=== PATIENT | male | born 1965 | race Caucasian/White ===

== ENCOUNTER 2018-01-26 08:00 | Outpatient (RCR) | payer OTHER, SELFPAY ==
--- NOTE | 2017-12-23 08:46 | HMH.PTOPEV ---
PT Outpatient Evaluation Rehab PT Outpatient Evaluation Start: 12/23/17 08:10 Freq: Status: Active Protocol: Document 12/23/17 08:38 XIN (Rec: 12/23/17 08:46 PHORADA [id number]) Electronically Signed By Monico Barrett, PT 12/23/17 08:38 Outpatient Therapy Subjective History Subjective History Pt is 52 yowm who presents with c/o pain in the right medial right knee x ~ 6 wks after a fall, I slipped on some wet grass and got my knee caught under me. He reports pain is much better since initial injury, but he continues to have increased pain at night and with any twisting or turning. He reports knee brace helps decrease his feelings of instability during the day. He also reports hx of restless leg syndrome. Chief Complaint Pain Symptom Type Ache Symptoms Relieved By Rest/Positioning Brace/Support OTC Meds Symptoms Aggravated By Twisting Walking Prior Functional Limitations None Current Functional Limitations Walking Symptom Description Constant but Variable Level of pain today (0-10) 4 Pain scale - at its worst (0-10) 10 Hip/Knee Eval Gait Observation General Gait Pattern Observation Antalgic Gait Palpation Tenderness right Knee Palpation Finding Tenderness Knee Palpation Overall Comment medial jt line. MMT bilateral Hip Flexion Strength Grade 5 Normal Hip Abduction Strength Grade 5 Normal Hip Adduction Strength Grade 5 Normal Hip Extension Strength Grade 5 Normal Knee Extension Strength Grade 5 Normal Knee Flexion Strength Grade 5 Normal ROM right Knee Flexion Active Range of Motion ( 0-124 degrees) Special Tests Knee Anterior Drawer Test Negative Left Negative Right Knee Anterior Moo Test Negative Left Negative Right Knee Posterior Sag (Petal Drawer) Test Negative Left Negative Right Knee Valgus Stress Test Negative Left Negative Right Knee Varus Stress Test Negative Left Negative Right Knee Divya Test Negative Left Negative Right
== END 2018-01-26 08:05 | disposition home or self-care (01) ==
LOC: PT 08:00
PROVIDERS: Visit Provider Family Medicine
DX: S83.411A Sprain of medial collateral ligament of right knee, initial encounter (principal); M25.561 Pain in right knee
CPT/HCPCS: 97010; 97014; 97033; 97035; 97110; 97163; G0283

== ENCOUNTER → 2018-06-14 11:04 | Outpatient (CLI) | payer OTHER, SELFPAY ==
[2018-06-14 11:48] LABS: Basophils # 0.1 K/mm3 (0-0.2); Basophils % 0.8 % (0.1-2.0); Eosinophils # 0.3 K/mm3 (0.0-0.4); Eosinophils % 4.2 % (0.1-12.0); Hematocrit 41.4 % (42.0-52.0); Hemoglobin 14.1 g/dL (14.1-18.0); Lymphocytes # 1.8 K/mm3 (0.7-4.5); Lymphocytes % 26.2 % (10-50); Mean Corpuscular HGB Conc 34.1 g/dL (31.8-35.4); Mean Corpuscular Hemoglobin 29.6 pg (27.0-31.2); Mean Corpuscular Volume 86.8 fl (80-94); Mean Platelet Volume 8.1 fl (7.4-10.4); Monocytes # 0.4 K/mm3 (0.1-1.0); Monocytes % 6.1 % (1.7-9.3); Neutrophils # 4.4 K/mm3 (1.8-7.8); Neutrophils % 62.8 % (37.0-80.0); Platelet Count 202 K/mm3 (142-424); Red Blood Count 4.77 M/mm3 (4.60-6.20); Red Cell Distribution Width 13.3 % (11.5-17.5)
[2018-06-14 13:17] LABS: Alanine Aminotransferase 58 U/L (12-78); Albumin Level 3.7 gm/dL (3.4-5.0); Alkaline Phosphatase 74 U/L (46-116); Anion Gap 17.1 mEq/L (5-15); Aspartate Amino Transferase 29 U/L (15-37); Bilirubin,Total 0.3 mg/dL (0.2-1.0); Blood Urea Nitrogen 12 mg/dL (7-18); Calcium 8.6 mg/dL (8.5-10.1); Carbon Dioxide 22 mmol/L (21.0-32.0); Chloride 106 mmol/L (98-107); Creatinine,Serum 0.85 mg/dL (0.70-1.30); Estimated Glomerular Filt Rate 94 ml/min (>60); Ferritin 106 ng/mL (8-388); GFR (African American) 114 ML/MIN (>60); Globulin 3.6 gm/dl (1.3-3.2); Glucose 114 mg/dL (74-106); Potassium 4.1 mmoL/L (3.5-5.1); Sodium 141 mmol/L (136-145); Thyroid Stimulating Hormone 1.87 uIU/ml (0.358-3.740); Total Protein,Serum 7.3 gm/dL (6.4-8.2)
[2018-06-15 08:17] LABS: Iron 68 ug/dL (38-169); Iron Saturation 22 % (15-55); UIBC 248 ug/dL (111-343)
[2018-06-15 08:19] LABS: Vitamin B12 509 pg/mL (232-1245)
== END ==
PROVIDERS: Visit Provider Specialist
DX: D50.9 Iron deficiency anemia, unspecified (principal); G25.81 Restless legs syndrome; G47.33 Obstructive sleep apnea (adult) (pediatric); M79.604 Pain in right leg; M79.605 Pain in left leg; R20.2 Paresthesia of skin; Z68.41 Body mass index [BMI] 40.0-44.9, adult
CPT/HCPCS: 36415; 80053; 82607; 82728; 82746; 83540; 83550; 84443; 85025

== ENCOUNTER → 2018-07-10 07:57 | Outpatient (POV) | payer OTHER, SELFPAY | PROVIDERS: Visit Provider Specialist | DX: M79.604 Pain in right leg (principal); M79.605 Pain in left leg; R20.2 Paresthesia of skin; G25.81 Restless legs syndrome; Z68.41 Body mass index [BMI] 40.0-44.9, adult; G47.33 Obstructive sleep apnea (adult) (pediatric) | CPT/HCPCS: 95886; 95908 ==

== ENCOUNTER → 2019-03-12 13:30 | Outpatient (CLI) | payer OTHER, SELFPAY ==
[2019-03-12 14:05] LABS: Alanine Aminotransferase 49 U/L (12-78); Albumin Level 3.6 gm/dL (3.4-5.0); Albumin/Globulin Ratio 1.1 (1.1-1.8); Alkaline Phosphatase 67 U/L (46-116); Anion Gap 13.9 mEq/L (5-15); Aspartate Amino Transferase 26 U/L (15-37); Bilirubin,Total 0.4 mg/dL (0.2-1.0); Blood Urea Nitrogen 12 mg/dL (7-18); Calcium 8.6 mg/dL (8.5-10.1); Carbon Dioxide 28 mmol/L (21.0-32.0); Chloride 100 mmol/L (98-107); Cholesterol 135 mg/dL (140-200); Creatinine,Serum 0.86 mg/dL (0.70-1.30); Estimated Glomerular Filt Rate 93 ml/min (>60); GFR (African American) 112 ML/MIN (>60); Globulin 3.3 gm/dl (1.3-3.2); Glucose 95 mg/dL (74-106); HDL Cholesterol 27 mg/dL (27-67); LDL Cholesterol 92 mg/dL (0-130); Potassium 3.9 mmoL/L (3.5-5.1); Sodium 138 mmol/L (136-145); Total Protein,Serum 6.9 gm/dL (6.4-8.2); Triglycerides 78 mg/dL (30-200); VLDL Cholesterol 16 mg/dL (0-40)
[2019-03-12 14:19] LABS: Basophils % 0.5 % (0.1-2.0); Eosinophils # 0.2 K/mm3 (0.0-0.4); Eosinophils % 3.6 % (0.1-12.0); Hematocrit 44.3 % (42.0-52.0); Hemoglobin 14.5 g/dL (14.1-18.0); Mean Corpuscular HGB Conc 32.7 g/dL (31.8-35.4); Mean Corpuscular Hemoglobin 28.9 pg (27.0-31.2); Mean Corpuscular Volume 88.4 fl (80-94); Mean Platelet Volume 9.4 fl (7.4-10.4); Monocytes # 0.5 K/mm3 (0.1-1.0); Monocytes % 9.9 % (1.7-9.3); Neutrophils # 3.1 K/mm3 (1.8-7.8); Neutrophils % 64.9 % (37.0-80.0); Platelet Count 191 K/mm3 (142-424); Red Blood Count 5.02 M/mm3 (4.60-6.20); Red Cell Distribution Width 14.6 % (11.5-17.5); White Blood Count 4.8 K/mm3 (4.8-10.8)
== END ==
PROVIDERS: Visit Provider Emergency Medicine
DX: R53.83 Other fatigue (principal)
CPT/HCPCS: 80053; 80061; 84443; 85025

== ENCOUNTER → 2019-03-26 08:05 | Outpatient (CLI) | payer OTHER, SELFPAY ==
--- NOTE | 2019-03-26 08:05 | US_ITS ---
PROCEDURE: US GALLBLADDER CLINICAL INDICATION: abdominal pain Nausea and vomiting COMPARISON: RUQ US RUQ-(ABD LTD)1ORGAN/QUAD/FU from 03/25/2014 FINDINGS: Pancreas: Not well delineated. There is some heterogeneous echogenicity of the body of the pancreas. The MRI or CT of the pancreas may be of further value. Liver: Unremarkable. There is appropriate direction of blood flow within a non dilated portal vein. Right kidney: Unremarkable appearing. No hydronephrosis. Gallbladder: Gallbladder wall is slightly thickened at 4-5 mm. No pericholecystic fluid. There are 2 hyperechoic foci along the gallbladder wall 1 anteriorly and 1 posteriorly. These could represent polyps. The posterior in focus could also be due to a nonshadowing adherent stone. No shadowing mobile stones are evident. The IMPRESSION: 1. Mild heterogeneous echogenicity of the body of the pancreas nonspecific and may be better evaluated with MRI or CT. 2. Mild gallbladder wall thickening with small polyps versus a small adherent nonshadowing stone posteriorly Dictated by: Anthony Tan MD 03/26/2019 09:58 Electronically signed by Anthony Tan MD in [facility] 03/26/2019 09:58
== END ==
PROVIDERS: PCP Emergency Medicine; Visit Provider Emergency Medicine
DX: K82.9 Disease of gallbladder, unspecified (principal)
CPT/HCPCS: 76705

== ENCOUNTER → 2019-04-16 08:50 | Outpatient (CLI) | payer OTHER, SELFPAY ==
--- NOTE | 2019-04-16 08:51 | MR_ITS ---
PROCEDURE: MR ABDOMEN WO/W CON CLINICAL INDICATION: abd pain COMPARISON: Ultrasound exam 03/25/2019 TECHNIQUE: Routine multiplanar multisequence exam was performed with and without contrast. 27 milliliters of ProHance contrast was given. FINDINGS: There is mild fatty infiltration of the liver. There are cortical cysts of both kidneys largest cyst is approximately 1.6 centimeters in the left kidney. There is a 1.6 x 2.3 centimeter focus of soft tissue density hypointense to the liver on T1 sequences and hyperintense on T2 in the peripancreatic region favored to be a peripancreatic nonspecific lymph node. This may be separable from the pancreas and liver. Thin-section pancreatic protocol CT may be useful for further assessment. Unfortunately there is some motion artifact degradation of images limiting assessment on this exam. There is no free fluid or lymphadenopathy. No biliary ductal dilatation is apparent. A rounded 1 centimeter soft tissue nodule abutting the pleural surface is seen in the left lower lobe. At a minimum correlation with the current chest x-ray is recommended. IMPRESSION: Possible 1.6 x 2.3 centimeter pancreatic origin mass or peripancreatic lymphadenopathy. Thin-section pancreatic protocol CT imaging is recommended for further clarification. No acute intra-abdominal pathology. Possible 1 centimeter left lower lobe pulmonary nodule requiring follow-up. Dictated by: Mitchell Martin 04/16/2019 12:43 Electronically signed by Mitchell Martin in [facility] 04/16/2019 12:43
== END ==
PROVIDERS: PCP Emergency Medicine; Visit Provider Emergency Medicine
DX: R10.9 Unspecified abdominal pain (principal)
CPT/HCPCS: 74183; A9576

== ENCOUNTER → 2019-04-26 14:44 | Outpatient (CLI) | payer OTHER, SELFPAY ==
[2019-04-26 16:50] LABS: Chloride 102 mmol/L (98-107); Potassium 4.5 mmoL/L (3.5-5.1); Sodium 139 mmol/L (136-145)
[2019-04-26 16:53] LABS: Anion Gap 12.5 mEq/L (5-15); Blood Urea Nitrogen 12 mg/dl (9-20); Carbon Dioxide 29 mmol/L (22.0-30.0); Estimated Glomerular Filt Rate 101 ml/min (>60); GFR (African American) 122 ML/MIN (>60)
[2019-04-26 16:54] LABS: Calcium 9.6 mg/dl (8.4-10.2); Glucose 59 mg/dl (74-100)
== END ==
PROVIDERS: Visit Provider Physician Assistant
DX: R10.9 Unspecified abdominal pain (principal)
CPT/HCPCS: 36415; 80048

== ENCOUNTER → 2019-04-27 11:00 | Outpatient (CLI) | payer OTHER, SELFPAY ==
--- NOTE | 2019-04-27 11:01 | CT_ITS ---
PROCEDURE: CT CHEST WO CON CLINICAL INDICATION: LLL nodule Follow-up left lower lobe nodule COMPARISON: MR ABDOMEN WO/W CON from 04/16/2019 CT ABDOMEN WO/W CON from 04/27/2019 TECHNIQUE: Axial images obtained with sagittal and coronal reformats. All CT scans at the facility use one or more dose reduction, viz: automated exposure control, ma/kV adjustment per patient size (including targeted exams where dose is matched to indication, i.e. head), or iterative reconstruction technique. FINDINGS: HEART AND MEDIASTINAL STRUCTURES: Unremarkable. LUNGS AND PLEURAL SPACES: There are atelectatic or fibrotic changes within the lingula. There is a well-circumscribed 1 cm nodule in the left lower lobe with some central calcification consistent a granuloma. BONY STRUCTURES: No acute bony abnormalities apparent. UPPER ABDOMEN: Degenerative changes thoracic ADDITIONAL FINDINGS: No other significant abnormalities. IMPRESSION: 1. Left lower lobe nodule as seen on previous MRI corresponds to well-circumscribed partially calcified nodule consistent with a granuloma 2. Atelectatic or fibrotic changes are present in the lingula Dictated by: Anthony Tan MD 04/27/2019 16:20 Electronically signed by Anthony Tan MD in [facility] 04/27/2019 16:20
--- NOTE | 2019-04-27 11:01 | CT_ITS ---
PROCEDURE: CT ABDOMEN WO/W CON CLINICAL HISTORY: abn MRI Follow-up pancreatic mass COMPARISON: MR ABDOMEN WO/W CON from 04/16/2019 TECHNIQUE: Axial pre and post enhanced images are obtained. 30 second, 60 second, and 5 minutes delayed images are obtained following the intravenous administration of 75 mL Optiray 350 Axial images obtained with sagittal and coronal reformats. All CT scans at the facility use one or more dose reduction, viz: automated exposure control, ma/kV adjustment per patient size (including targeted exams where dose is matched to indication, i.e. head), or iterative reconstruction technique. FINDINGS: Partially calcified granulomas present in the left lung base posteriorly. There are atelectatic or fibrotic changes in the lingula. Liver, gallbladder, spleen, adrenal glands, and pancreas have an unremarkable appearance. There is a small isodense nodule to the right of the head of the pancreas which measures 1.7 cm corresponding to the MRI abnormality and is felt represent a small peripancreatic lymph node with a preserved fat plane between the nodule in the pancreatic head the. No pancreatic mass apparent. There are few other small periportal lymph nodes. The kidneys have an unremarkable appearance. There are few small retroperitoneal lymph nodes present as well. There is diverticulosis of the colon IMPRESSION: 1. No obvious pancreatic mass. There is a small periportal/peripancreatic lymph node just lateral to the junction of the head and body of the pancreas. 2. Small periportal and retroperitoneal lymph nodes are present. Dictated by: Anthony Tan MD 04/27/2019 16:30 Electronically signed by Anthony Tan MD in [facility] 04/27/2019 16:30
== END ==
PROVIDERS: PCP Emergency Medicine; Visit Provider Physician Assistant
DX: R91.1 Solitary pulmonary nodule (principal); K86.89 Other specified diseases of pancreas
CPT/HCPCS: 71250; 74170; Q9967

== ENCOUNTER → 2019-05-01 09:53 | Outpatient (CLI) | payer OTHER, SELFPAY | PROVIDERS: Visit Provider Urology | DX: Z12.5 Encounter for screening for malignant neoplasm of prostate (principal) | CPT/HCPCS: 36415; G0103 ==

== ENCOUNTER → 2019-05-10 09:49 | Outpatient (CLI) | payer OTHER, SELFPAY ==
--- NOTE | 2019-05-10 09:50 | NM_ITS ---
PROCEDURE: NM HEPATOBILIARY W PHARM CLINICAL INDICATION: RUQ pain The gallbladder wall thickening with small polyps versus small stones COMPARISON: US GALLBLADDER from 03/26/2019 TECHNIQUE: Dose: 8.24 mCi technetium Choletec and 2.6 mcg of CCK. Pain was reported during CCK infusion. FINDINGS: Gallbladder is visualized 15 minutes and small bowel is visualized 10 minutes. Gallbladder ejection fraction is calculated be 44 percent. There was pain reported with CCK infusion IMPRESSION: No evidence of common or cystic duct obstruction. Normal gallbladder ejection fraction. Dictated by: Anthony Tan MD 05/10/2019 13:38 Electronically signed by Anthony Tan MD in [facility] 05/10/2019 13:38
== END ==
PROVIDERS: PCP Emergency Medicine; Visit Provider Emergency Medicine
DX: R10.9 Unspecified abdominal pain (principal); G89.29 Other chronic pain
CPT/HCPCS: 78227; A9537; J2805

== ENCOUNTER → 2019-05-21 08:38 | Outpatient (CLI) | payer OTHER, SELFPAY ==
--- NOTE | 2019-05-21 08:39 | FL_ITS ---
PROCEDURE: FL UPPER GI SMALL BOWEL CLINICAL INDICATION: abdominal pain Chronic right lower quadrant pain COMPARISON: No exams were available for comparison TECHNIQUE: FLUOROSCOPY TIME : 2 minutes and 51 seconds FINDINGS: The esophagus, stomach, and duodenum have an unremarkable appearance.There is no evidence of hiatal hernia. No ulcer or mass evident. No mucosal abnormalities apparent. There is normal peristalsis. The duodenal C-loop is nondisplaced. Small bowel has an unremarkable appearance. No obstructing lesions, masses, or mucosal abnormalities are evident. IMPRESSION: Unremarkable upper GI and small-bowel follow-through Dictated by: Anthony Tan MD 05/21/2019 16:59 Electronically signed by Anthony Tan MD in [facility] 05/21/2019 16:59
== END ==
PROVIDERS: PCP Emergency Medicine; Visit Provider Surgery
DX: R13.10 Dysphagia, unspecified (principal)
CPT/HCPCS: 74246; 74248

== ENCOUNTER → 2019-08-17 10:21 | Outpatient (CLI) | payer BC, SELFPAY ==
--- NOTE | 2019-08-17 10:31 | XR_ITS ---
PROCEDURE: XR HIP LT 2-3V W/PELVIS CLINICAL INDICATION: LT HIP PAIN COMPARISON: CT ABDOMEN PELVIS WO CON from 05/07/2019 FINDINGS: No fracture or dislocation is evident. No significant degenerative change. No lytic or blastic change. There is mild spurring of the inferior SI joints bilaterally. Unremarkable soft tissues. IMPRESSION: No acute findings, suspect mild bilateral sacroiliitis Dictated by: Dr. Nick Abreu MD 08/17/2019 12:[address] Nick Abreu MD in [facility] 08/17/2019 12:13
== END ==
PROVIDERS: PCP Family Medicine; Visit Provider Family Medicine
DX: M25.552 Pain in left hip (principal)
CPT/HCPCS: 73502

== ENCOUNTER 2019-09-19 09:49 | Outpatient (RCR) | payer BC, SELFPAY ==
--- NOTE | 2019-09-19 11:24 | HMH.PTOPEV ---
PT Outpatient Evaluation Rehab PT Outpatient Evaluation Start: 09/19/19 10:03 Freq: Status: Active Protocol: Document 09/19/19 10:14 OLEGARIO (Rec: 09/19/19 11:24 OLEGARIO [id number]) Electronically Signed By Parrish Cunningham PT 09/19/19 10:14 Outpatient Therapy Subjective History Subjective History This is the initial Physical Therapy evaluation for Corbin Baxter. Pt is a 53 y/o male referred to PT for c/o L hip and LLE pain. Pt reports pain began insidiously in Nov 2018. 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 Pt reports this [employer] company had multiple facilities that all had multiple stories and stairs to climb. Pt reports he began noticing pain in L hip and buttocks which continued to increase the more and more he worked. Pt reports he had recent steroid injection into hip which decreased pain, but has begun to wear off with return to work. Pt also reports he has some pain into anterior L thigh and B claves tend to cramp up frequently. Chief Complaint Pain Symptom Type Ache,Throb,Sharp Symptoms Relieved By Rest/Positioning,Ice Symptoms Aggravated By Physical Activity,Walking Prior Functional Limitations None Current Functional Limitations Squatting,Recreation Activity, Walking,Stairs Symptom Description Intermittent Level of pain today (0-10) 2 Pain scale - at its best (0-10) 0 Pain scale - at its worst (0-10) 8 Hip/Knee Eval Gait Observation General Gait Pattern Observation Antalgic Gait,Decrease Weight Bear (L),Decrease Stride Lngth (R) Assistive Device Assistive Devices None / NA Palpation Tenderness left Hip Palpation Findings Tenderness MMT Hip Flexion Strength Grade 4 Good Hip Abduction Strength Grade 4 Good Hip External Rotation Strength Grade 4 Good Knee Extension Strength Grade 5 Normal Knee Flexion Strength Grade 5 Normal Special Tests Hip Raghu Test Positive Left Sciatic Nerve Tension Test Negative Left Hip Scouring (Quadrant) Test
== END 2019-09-19 09:55 | disposition home or self-care (01) ==
LOC: PT 09:49
PROVIDERS: PCP Family Medicine; Visit Provider Family Medicine
DX: M70.62 Trochanteric bursitis, left hip (principal); M16.12 Unilateral primary osteoarthritis, left hip
CPT/HCPCS: 97163

== ENCOUNTER → 2020-03-13 14:33 | Outpatient (CLI) | payer OTHER, SELFPAY ==
--- NOTE | 2020-03-13 14:42 | XR_ITS ---
PROCEDURE: XR FOOT RT MIN 3V CLINICAL INDICATION: CELLULITIS RT GREAT TOE COMPARISON: No exams were available for comparison FINDINGS: There are moderate osteoarthritic changes at the 1st metatarsophalangeal joint. There is an enthesophyte at the Achilles insertion and there is calcification within the mid and distal aspect of the Achilles tendon proximal to the enthesophyte. There are mild osteoarthritic changes of the talonavicular joint and at the ankle joint anteriorly. IMPRESSION: Degenerative changes as described above Dictated by: Anthony Tan MD 03/13/2020 15:38 Anthony Tan MD in [facility] 03/13/2020 15:38
== END ==
LOC: RAD 14:39 → COVID.OUT 15:13
PROVIDERS: PCP Family Medicine; Visit Provider Nurse Practitioner Family
DX: Z11.52 Encounter for screening for COVID-19 (principal); R50.9 Fever, unspecified; L03.031 Cellulitis of right toe
CPT/HCPCS: 73630; U0003; U0004

== ENCOUNTER 2020-03-19 16:00 | Outpatient (RCR) | payer BC, OTHER, MEDICAID, SELFPAY ==
--- NOTE | 2020-01-21 15:57 | HMH.PTOPEV ---
PT Outpatient Evaluation Rehab PT Outpatient Evaluation Start: 01/21/20 15:41 Freq: Status: Active Protocol: Document 01/21/20 15:41 DARIEL (Rec: 01/21/20 15:57 DARIEL [id number]) Electronically Signed By Ernie Calderon, PT 01/21/20 15:41 Outpatient Therapy Subjective History Subjective History Patient is a 54 year old male presenting to outpatient PT with reports of chronic LBP, L hip and LLE radicular symptoms that have progressively gotten worse over the past 6 months. Radicular symptoms relieved with lumbar extension indicating bulging disc. No recent imaging to report. Comorbidities include hx of RLS, appendectomy and R knee arthroscopy. Chief Complaint Pain,Stiff,Paresthesia Symptom Type Ache,Burning Symptoms Relieved By Rest/Positioning,Heat,Ice,OTC Meds Symptoms Aggravated By Standing,Bending/Stooping, Physical Activity,Walking, Lifting Prior Functional Limitations None Current Functional Limitations Lifting,Housework,Driving, Standing,Sitting,Squatting, Recreation Activity,Walking, Stairs,Bending/Stooping Symptom Description Constant but Variable Level of pain today (0-10) 6 Pain scale - at its best (0-10) 3 Pain scale - at its worst (0-10) 9 Lumbopelvic Eval Posture Thoracic Spine Posture Standing Position Increased Kyphosis Lumbar Spine Posture Standing Position Neutral Assistive device Assistive Devices None / NA Palapation tenderness left buttock tenderness Yes: 3/4 Accessory Movement L5 left S1 left Range of Motion Lumbar Spine Active Flexion Range of 64 Motion (degrees) Lumbar Spine Active Extension Range of 18 Motion (degrees) Left Lumbar Spine Lateral Flexion Active 18 Range of Motion (degrees) Right Lumbar Spine Lateral Flexion 22 Active Range of Motion (degrees) Lumbar Spine ROM Limitations Soft Tissue Tightness Manual Muscle Test Bilateral Knee Extension Strength Grade 5 Normal Knee Flexion Strength Grade 5 Normal Hip Flexion Strength Grade 5 Normal Ankle Dorsiflexion Strength Grade 5 Normal Gastronemius/Soleus Strength Grade 5 Normal DTR Rt Patellar
== END 2020-03-19 16:05 | disposition home or self-care (01) ==
LOC: PT 16:00
PROVIDERS: PCP Family Medicine; Visit Provider Family Medicine
DX: M70.62 Trochanteric bursitis, left hip (principal); M54.32 Sciatica, left side
CPT/HCPCS: 97010; 97012; 97014; 97110; 97140; 97163; 97164; G0283

== ENCOUNTER → 2020-04-07 08:58 | Outpatient (POV) | payer OTHER, SELFPAY ==
[2020-04-07 09:02] VITALS: BP 138/76; PULSE 87; RESP 18; TEMP 36.8; O2SAT 99; BMI 41.9
--- NOTE | 2020-04-07 09:39 | HMH.PMCON ---
Assessment and Plan (1) Back pain Status: Chronic Category: Medical Code(s): M54.9 - Dorsalgia, unspecified (2) Lumbar radiculopathy Status: Chronic Category: Medical Code(s): M54.16 - Radiculopathy, lumbar region - Assessment and plan all Dx Assessment and Plan for all problems:: We will schedule the patient for lumbar MRI. Patient has failed over 6 months of conservative therapy including careers adviser, physical therapy, anti-inflammatories. Patient is continuing physical therapy at this time. Patient does not have any updated lumbar imaging. We will send him for an MRI. We will have him return to see if he is a candidate for any interventional treatment. I will follow-up with him after this reassess his symptoms at that time he has been instructed to call the office if he has any issues prior to his next appointment. Dr. Amaral has reviewed this note and agrees with this plan of care. This note was dictated using voice recognition software and may contain errors or omissions HPI - Data of Consult Consult date: 04/07/20 Requesting Physician: Aretha Lilly APRN Primary Care Provider: Cuong Peña MD - Consult Narrative Reason for consult: Back pain History of present illness: Mr. Palencia is a 54 year old male who presents today for consultation regards to his low back and left leg pain. Patient has had this pain for quite some time. He is tried and failed physical therapy twice. He is currently in physical therapy again. Patient's had steroid injections in his bursa with no relief. He is tried careers adviser with no relief. He is currently on meloxicam and baclofen which takes a little bit of the edge off however it is not taking away his radicular symptomology in his left leg. Patient has left leg radiculopathy affecting his feet as well. Patient currently rates his pain a 5 out of 10. Patient states that lifting, bending, driving and stairs increases pain while rest and heat decreases pain. CC: Aretha Lilly APRN [facility] History I have reviewed the patient's past medical history: Yes Medical History: Denies:: Cancer, Diabetes Mellitus Type 1, Diabetes Mellitus Type 2, Internal Pacemaker, MRSA *Have you ever received a pneumonia vaccine?: Yes *Have you received a flu vaccine this season?: Yes Other Medical History: Reports: Arthritis, Other Laterality Cases: Right: Arthroscopy Knee, Bilateral: Tonsillectomy Other Surgeries: Yes: Appendectomy, Colonoscopy, Other. No: Pacemaker Amputation: No Fractures: No - *Social History Last grade of school completed: Some college Smoking Status: Never smoker Tobacco Type: cigarettes #Yrs smoked (if former smoker): 20 Alcohol Intake: never Alcohol Intake Frequency:: other Substance Use Type: former substance user, marijuana, crack/cocaine, methamphetamine *Occupational Status:: employed Housing: house Household Members: spouse, children *Travel in the last 8 weeks: None Family Hx:: Unable to obtain Review of Systems - Review of Systems ROS General: no recent weight change, no fever, no sleep disturbances Respiratory: no cough, no shortness of air, no recurring pulmonary infections Cardiovascular/Peripheral Vascular: No chest pain, No palpitations, no edema, no shortness of breath. Gastrointestinal: no new onset incontinence, normal bowel movements reported Genitourinary: no new onset incontinence Musculoskeletal: Back pain, left leg pain Psychiatric: normal mood/ affect Neurological: [denies new onset weakness in extremities], [denies new onset balance issues] Meds Home Medications Medication Instructions Recorded Confirmed Type tamsulosin 0.4 mg capsule PO 90 Days cap 05/29/18 11/27/19 History oxybutynin chloride 5 mg 5 mg PO tab 06/04/19 11/27/19 History tablet,extended release 24 hr gabapentin enacarbil 600 mg 600 mg PO QPM 30 Days #30 tab 11/27/19 11/27/19 Rx tablet,extended release ropinirole 1 m
== END ==
PROVIDERS: PCP Family Medicine; Visit Provider Clinical Nurse Specialist Family Health
DX: M54.9 Dorsalgia, unspecified (principal); M54.16 Radiculopathy, lumbar region
CPT/HCPCS: 99202; G0463

== ENCOUNTER → 2020-04-08 14:01 | Outpatient (CLI) | payer OTHER, SELFPAY ==
--- NOTE | 2020-04-08 14:06 | MR_ITS ---
PROCEDURE: MR LUMBAR SPINE WO CON CLINICAL INDICATION: LBP WITH LEFT LEG PAIN LBP DOWN LT LEG. NO TRAUMA. NUMBNESS, PAIN AND TINGLING DOWN LT LEG. NO SURGERY. NO PRIOR. COMPARISON: No exams were available for comparison TECHNIQUE: Standard multiplanar multiecho sequences are performed without contrast. 3-D MIP and myelographic images are also rendered and reviewed FINDINGS: There is normal alignment. The spinal cord ends at the L1 level. L1-L2: Unremarkable. L2-L3: Mild facet ligamentum hypertrophy with mild right foraminal narrowing. L3-L4: Mild facet and ligamentum hypertrophy with mild bilateral foraminal narrowing L4-5: Minimal bulging disc with facet and ligamentum hypertrophy with mild bilateral foraminal narrowing. L5-S1: Degenerative disc disease with bulging disc which is eccentric toward the left with a broad-based left lateral disc osteophyte complex causing severe left-sided foraminal narrowing laterally with impingement upon the exiting L5 nerve root. There is mild retrolisthesis of L5 of 2 mm with and annular fissure involving the posterior disc No extruded herniated disc or canal stenosis. IMPRESSION: 1. Mild multilevel lumbar spondylosis with facet and ligamentum hypertrophy. Please see above for detailed description at each level 2. Degenerative disc disease at L5-S1 with bulging disc which is eccentric toward the left with a broad-based left lateral disc osteophyte complex causing severe left-sided foraminal narrowing laterally with impingement upon the exiting L5 nerve root. There is mild retrolisthesis of L5 of 2 mm with and annular fissure involving the posterior disc 3. No extruded herniated disc or canal stenosis. Dictated by: Anthony Tan MD 04/10/2020 13:11 Anthony Tan MD in [place] 04/10/2020 13:11
== END ==
PROVIDERS: PCP Family Medicine; Visit Provider Clinical Nurse Specialist Family Health
DX: M54.5 Low back pain (principal)
CPT/HCPCS: 72148; 76376

== ENCOUNTER → 2020-04-14 08:45 | Outpatient (POV) | payer OTHER, SELFPAY ==
--- NOTE | 2020-04-14 09:13 | HMH.PAINSOAP ---
[facility] Pain Management SOAP Note Subjective:: Patient is a pleasant 54-year-old white male who presents today for follow-up after MRI. Patient does have degenerative disc disease along with a broad-based left lateral disc osteophyte complex that is causing impingement on the exiting L5 nerve root on the left side. Patient states that most of his pain is in his back and down his left leg. Patient rates his pain today an 8 out of 10. He is tried and failed conservative measures including medication management, physical therapy, anti-inflammatories, landcare officer. He is failed over 6 months of recent conservative therapy. He is interested in potentially doing epidural steroid injections to see if this will help with some of his pain. He is not on any anticoagulation therapy. ROS General: no recent weight change, no fever, no sleep disturbances Respiratory: no cough, no shortness of air, no recurring pulmonary infections Cardiovascular/Peripheral Vascular: No chest pain, No palpitations, no edema, no shortness of breath. Gastrointestinal: no new onset incontinence, normal bowel movements reported Genitourinary: no new onset incontinence Musculoskeletal: Back pain, leg pain Psychiatric: normal mood/ affect Neurological: [denies new onset weakness in extremities], [denies new onset balance issues] Objective:: Physical Exam General: Alert and oriented x3, no acute distress, pleasant and cooperative, [on room air] Lungs: Resps E/U, Symmetrical chest expansion, Eyes: PERRL Musculoskeletal: Flexion and extension of lumbar spine somewhat guarded secondary to pain, deep tendon reflexes normal, strength in upper and lower extremities [5/5], [abnormal gait noted] Neurological: speech clear, 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 Patient's been instructed to call the office if he has any issues prior to his next appointment. I will follow-up with him after his injection reassess his symptoms at that time we will give him some tramadol 50 mg 1 p.o. 3 times daily to assist with pain while he is continuing to work. He has been instructed to call the office if he has any issues prior to his next appointment. Dr. Amraal has reviewed this note and agrees with this plan of care. This note was dictated using voice recognition software and may contain errors or omissions [facility] History I have reviewed the patient's past medical history: Yes Medical History: Denies:: Cancer, Diabetes Mellitus Type 1, Diabetes Mellitus Type 2, Internal Pacemaker, MRSA *Have you ever received a pneumonia vaccine?: Yes *Have you received a flu vaccine this season?: Yes Other Medical History: Reports: Arthritis, Other Laterality Cases: Right: Arthroscopy Knee, Bilateral: Tonsillectomy Other Surgeries: Yes: Appendectomy, Colonoscopy, Other. No: Pacemaker Amputation: No Fractures: No - *Social History Smoking Status: Never smoker Tobacco Type: cigarettes #Yrs smoked (if former smoker): 20 Alcohol Intake: never Alcohol Intake Frequency:: other Substance Use Type: former substance user, marijuana, crack/cocaine, methamphetamine *Occupational Status:: employed Housing: house Household Members: spouse, children *Travel in the last 8 weeks: None Family Hx:: Unable to obtain
[2020-04-14 09:15] VITALS: BP 132/88; PULSE 74; RESP 18; TEMP 36.8; O2SAT 98; BMI 42.0
== END ==
PROVIDERS: PCP Family Medicine; Visit Provider Clinical Nurse Specialist Family Health
DX: M51.16 Intervertebral disc disorders with radiculopathy, lumbar region (principal); G54.9 Nerve root and plexus disorder, unspecified
CPT/HCPCS: 99212; G0463

== ENCOUNTER 2020-04-18 10:24 | Day surgery (SDC) | payer OTHER, SELFPAY ==
[2020-04-18 11:03] VITALS: BP 139/72; PULSE 84; RESP 18; TEMP 36.8; O2SAT 98; BMI 42.0
[2020-04-18 12:23] VITALS: BP 142/78; PULSE 85; RESP 18; TEMP 36.8; O2SAT 99
[2020-04-18 12:27] VITALS: BP 132/85; PULSE 85; RESP 18; O2SAT 98
[2020-04-18 12:36] VITALS: BP 140/75; PULSE 73; RESP 18; O2SAT 98
--- NOTE | 2020-04-18 12:38 | P.PCN_ITS ---
- Procedure Date: 04/18/20 Time: 12:38 Anesthesiologist:: Felipe Amaral MD Complications:: None Pre-procedure Diagnosis:: Degenerative disc disease of lumbar spine with lumbar radiculopathy symptoms Post-procedure Diagnosis:: Same Indications for Procedure:: Patient is a pleasant 54-year-old white female who we are treating for low back pain with lumbar radicular symptoms. He does have a broad-based left lateral disc osteophyte complex causing impingement on the exiting L5 nerve root on the left side. 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 He is done 6 months of conservative therapy. He presents for lumbar epidural steroid injection today. Procedure Details:: Lumbar epidural steroid injection under fluoroscopy Informed consent was obtained and the risk and benefits of the procedure was explained to the patient. The patient was taken to the procedure room. The p atient was placed prone on the procedure table. The patient was prepped and draped in sterile fashion. C-arm fluoroscopy was used to view the lumbar spine. Skin and subcutaneous tissues were anesthetized using lidocaine. I placed an 18-gauge epidural needle and advanced into the L4-L5 interspace using fluoroscopic guidance and [id number] to air. After confirmation of needle placement in the epidural space with dye I injected 2 mL of lidocaine 1.5% with Depo-Medrol 80 mg. Patient tolerated the procedure well with no complications. Plan and Disposition:: We will follow-up with him in 2 weeks. Will reevaluate his symptoms at that time.
== END 2020-04-18 12:37 | disposition home or self-care (01) ==
LOC: SC.PAINP 10:26
PROVIDERS: PCP Family Medicine; Visit Provider Anesthesiology
DX: M51.16 Intervertebral disc disorders with radiculopathy, lumbar region (principal); M19.90 Unspecified osteoarthritis, unspecified site; N40.0 Benign prostatic hyperplasia without lower urinary tract symptoms; Z87.19 Personal history of other diseases of the digestive system; Z90.49 Acquired absence of other specified parts of digestive tract; E66.01 Morbid (severe) obesity due to excess calories; Z68.41 Body mass index [BMI] 40.0-44.9, adult; Z79.899 Other long term (current) drug therapy
CPT/HCPCS: 62323; J1040; Q9966

== ENCOUNTER → 2020-05-01 15:34 | Outpatient (POV) | payer OTHER, SELFPAY ==
[2020-05-01 15:43] VITALS: BP 140/74; PULSE 71; RESP 18; O2SAT 99; BMI 41.5
--- NOTE | 2020-05-01 16:07 | HMH.PAINSOAP ---
[facility] Pain Management SOAP Note Subjective:: Patient is a very pleasant 54-year-old white male who presents today for follow-up after lumbar epidural steroid injection. Patient has been treated for degenerative disc disease lumbar spine with lumbar radiculopathy symptoms. He does have L5 nerve root impingement. Patient says that he is unsure if he got any relief with his initial injection. Patient says immediately after having the injection he went back to work. 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 He does work here at [employer]. Today he rates his pain an 8 out of 10. His pain is primarily and he has low back area and radiating into his left leg, left hip and left tabares. He says the pain initially started in his left hip and began to radiate into his left leg and all the way to the foot. He has now having left ankle pain to walk feels as though he has a sprained ankle. He is having numbness and tingling, with a sensation that feels like a rubber band around 3 middle toes to left foot . Patient says that the pain is worse when he is standing and walking. Sitting in a recliner and ice does give him relief. Patient says he has noticed he has been more functional mid day over the last week, however, when he gets home from work in the evenings his pain returns. He has tried and failed conservative therapies of physical therapy, home stretching, and anti-inflammatories. He has also tried and failed chiropractic therapy. review of Systems General: No recent weight changes, no fever, no sleep disturbances Respiratory: No cough, no shortness of air, no recurring pulmonary infections Cardiovascular/peripheral vascular: No chest pain, no palpitations, no edema, no shortness of breath Gastrointestinal: No new onset incontinence, normal bowel movements reported Genitourinary: No new onset incontinence Musculoskeletal: Low back pain radiating into left hip, left leg and left ankle Psychiatric: Normal mood/affect Neurological: Weakness left lower extremity, [denies balance issues] Objective:: Physical exam General: Alert and oriented x3, no acute distress, pleasant and cooperative, [on room air] Lungs: Respirations even and unlabored, symmetrical chest expansion Eyes: PERRL Musculoskeletal: Flexion and extension of lumbar spine somewhat guarded secondary to pain, deep tendon reflexes normal, strength in upper and lower extremities [5/5], [abnormal gait noted] Neurological: 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 He does admit he did not give himself time to relax or to allow the injection to begin to work. He would like to proceed with a repeat injection. We will schedule him for a lumbar epidural steroid injection at L4-L5. He is not on any anticoagulation therapy. We will plan to see him back after the injection to reevaluate his symptoms. He has been instructed to contact clinic if he has any concerns for his next appointment. The patient and I specifically discussed risk factors for COVID19. These risks include, but are not limited to age greater than 60, heart or lung disease, diabetes, immunosuppression, and travel. We also discussed NSAIDs may worsen COVID19 infection or symptoms. Patient should not use NSAIDs to treat COVID19 signs or symptoms. Patient was also informed that any type of corticosteroid of any form (oral or injection) will decrease the patient's immune system response and may increase the likelihood of COVID19 infection and symptoms. Risks and benefits of the procedure have been explained to the patient. Patient would like to proceed with the procedure. Dr. Amaral has reviewed this note and agrees with this plan of c
== END ==
PROVIDERS: PCP Family Medicine; Visit Provider Clinical Nurse Specialist Family Health
DX: M51.16 Intervertebral disc disorders with radiculopathy, lumbar region (principal)
CPT/HCPCS: 99212; G0463

== ENCOUNTER → 2020-05-05 16:49 | Outpatient (CLI) | payer OTHER, SELFPAY | PROVIDERS: Visit Provider Urology | DX: Z12.5 Encounter for screening for malignant neoplasm of prostate (principal) | CPT/HCPCS: 36415; G0103 ==

== ENCOUNTER 2020-05-09 10:01 | Day surgery (SDC) | payer OTHER, SELFPAY ==
[2020-05-09 12:11] VITALS: BP 126/64; PULSE 71; RESP 18; TEMP 36.1; O2SAT 97; BMI 41.3
[2020-05-09 12:38] VITALS: BP 117/78; BP 118/78; PULSE 89; RESP 18; O2SAT 98
--- NOTE | 2020-05-09 12:49 | HMH.PMPROC ---
- Procedure Date: 05/09/20 Time: 12:49 Anesthesiologist:: Felipe Amaral MD Complications:: None Pre-procedure Diagnosis:: Degenerative disc disease of lumbar spine with lumbar radiculopathy symptoms Post-procedure Diagnosis:: Same Indications for Procedure:: Patient is a pleasant 54-year-old white male who we are treating for low back pain with lumbar radiculopathy symptoms. He has increasing pain in his low back rating down both legs. We will do a repeat lumbar epidural steroid injection today to see if this will help with his pain symptoms. He did get some relief from his previous injection. Procedure Details:: Lumbar epidural steroid injection under fluoroscopy Informed consent was obtained and the risk and benefits of the procedure was explained to the patient. The patient was taken to the procedure room. The patient was placed prone on the procedure table. The patient was prepped and draped in sterile fashion. C-arm fluoroscopy was used to view the lumbar spine. Skin and subcutaneous tissues were anesthetized using lidocaine. I placed an 18-gauge epidural needle and advanced into the L4-L5 interspace using fluoroscopic guidance and [id number] to air. After confirmation of needle placement in the epidural space with dye I injected 2 mL of lidocaine 1.5% with Depo-Medrol 80 mg. Patient tolerated the procedure well with no complications. Plan and Disposition:: We will follow-up with him in 2 weeks. Will reevaluate symptoms at that time.
[2020-05-09 12:59] VITALS: BP 134/67; PULSE 68; RESP 18; O2SAT 98
== END 2020-05-09 13:00 | disposition home or self-care (01) ==
LOC: SC.PAINP 10:02
PROVIDERS: PCP Family Medicine; Visit Provider Anesthesiology
DX: M51.16 Intervertebral disc disorders with radiculopathy, lumbar region (principal); N40.0 Benign prostatic hyperplasia without lower urinary tract symptoms; Z79.899 Other long term (current) drug therapy
CPT/HCPCS: 62323; J1040; Q9966

== ENCOUNTER → 2020-06-12 15:26 | Outpatient (POV) | payer OTHER, SELFPAY ==
--- NOTE | 2020-06-12 15:57 | HMH.PAINSOAP ---
[facility] Pain Management SOAP Note Subjective:: Patient is a pleasant 54-year-old white male who we are treating for low back pain with lumbar radiculopathy symptoms. He is following up after second lumbar epidural steroid injection. He got over 80% relief from his injection overall has done extremely well his activity has increased. Patient would like to finish the third injection in his epidural series. We will move forward with this. He is not on any anticoagulation therapy. He is continuing to stay as active as possible. He is on anti-inflammatories as needed. ROS General: no recent weight change, no fever, no sleep disturbances Respiratory: no cough, no shortness of air, no recurring pulmonary infections Cardiovascular/Peripheral Vascular: No chest pain, No palpitations, no edema, no shortness of breath. Gastrointestinal: no new onset incontinence, normal bowel movements reported Genitourinary: no new onset incontinence Musculoskeletal: Back pain, leg pain Psychiatric: normal mood/ affect Neurological: [denies new onset weakness in extremities], [denies new onset balance issues] Objective:: Physical Exam General: Alert and oriented x3, no acute distress, pleasant and cooperative, [on room air] Lungs: Resps E/U, Symmetrical chest expansion, Eyes: PERRL Musculoskeletal: Flexion and extension of lumbar spine somewhat guarded secondary to pain, deep tendon reflexes normal, strength in upper and lower extremities [5/5], slightly antalgic gait noted Neurological: speech clear, yeast tender equal, no gross sensory deficits Assessment:: Degenerative disc disease lumbar spine lumbar radiculopathy, back pain Plan:: We will move forward with a third L4-L5 lumbar epidural steroid injection we will finish out his epidural steroid injection series. Patient's been instructed to call the office if he has any issues prior to his next appointment. Dr. Amaral has reviewed this note and agrees with this plan of care. This note was dictated using voice recognition software and may contain errors or omissions [facility] History I have reviewed the patient's past medical history: Yes Medical History: Reports:: BPH Denies:: Cancer, Diabetes Mellitus Type 1, Diabetes Mellitus Type 2, Internal Pacemaker, MRSA, Seizures *Have you ever received a pneumonia vaccine?: No *Have you received a flu vaccine this season?: No Other Medical History: Reports: Arthritis, Other. Denies: Blood Transfusion Reaction Laterality Cases: Right: Arthroscopy Knee, Bilateral: Tonsillectomy Other Surgeries: Yes: No Previous Surgery, Appendectomy, Colonoscopy, Other. No: Pacemaker Amputation: No Fractures: No - *Social History Smoking Status: Former smoker Tobacco Type: cigarettes #Yrs smoked (if former smoker): 20 Alcohol Intake: never Alcohol Intake Frequency:: other Substance Use Type: former substance user, marijuana, crack/cocaine, methamphetamine *Occupational Status:: employed Housing: house Household Members: spouse *Travel in the last 8 weeks: None Family Hx:: Unable to obtain
[2020-06-12 16:25] VITALS: BP 142/78; PULSE 78; RESP 18; O2SAT 99; BMI 41.3
== END ==
PROVIDERS: PCP Family Medicine; Visit Provider Clinical Nurse Specialist Family Health
DX: M51.16 Intervertebral disc disorders with radiculopathy, lumbar region (principal)
CPT/HCPCS: 99212; G0463

== ENCOUNTER 2020-06-17 09:00 | Emergency (ER) | payer OTHER, SELFPAY ==
--- NOTE | 2020-06-17 09:23 | HMH.EDUTC ---
[facility] Disposition Clinical Impression: Viral syndrome Disposition: Home, Self-Care Condition on Discharge: Good Instructions: Preventing the Spread of Coronavirus Discharge Instructions Additional Instructions: Drink plenty of fluids. Take tylenol for pain or fever. Return if you begin to have difficulty breathing. Follow up with your regular doctor. GO TO THE ER FOR ANY WORSENING SYMPTOMS Referrals: Cuong Peña MD [Primary Care Provider] - Forms: Work/School Release Time of Disposition: 09:37 Medical Decision Making - Medical Records Medical records reviewed: No: I reviewed the patient's medical records. - Camilo Inquiry Pt receiving controlled substance: No Vital Signs: 06/17/20 09:27 06/17/20 09:44 Temperature 99.9 F H 99.9 F H Temperature Source Oral Oral Pulse Rate 93 H Pulse Rate [Right Brachial] 93 H Respiratory Rate 18 18 Blood Pressure 130/66 Blood Pressure [Right Arm] 130/66 Blood Pressure Mean [Right Arm] 87 Blood Pressure Source Automatic Cuff Blood Pressure Source [Right Arm] Automatic Cuff Blood Pressure Position Sitting Blood Pressure Position [Right Arm] Sitting 02 Sat by Pulse Oximetry 96 Oxygen Delivery Method Room Air Room Air - Lab Data Lab results reviewed: Yes: I reviewed the patient's lab results. Orders (Tests/Meds): ORDERS Category Date Time Status Full Resp Panel w/COVID ([facility]) Routine Lab 06/17/20 09:10 Received [facility] HPI - General Stated complaint: cvoid test Time Seen by Provider: 06/17/20 09:34 - History of Present Illness Provider Complaint: He states that since yesterday evening he has had fever up to 102, chilling and body aches. He has had the 2 shot regimen for covid-19 vaccination. He has had a flu shot this year. He denies any chest pain and shortness of breath or cough. - Related Data Home Medications Medication Instructions Recorded Confirmed tamsulosin 0.4 mg capsule 0.4 mg PO NEEDED PRN 90 Days 05/29/18 06/09/20 cap oxybutynin chloride 5 mg 5 mg PO DAILY tab 06/04/19 06/09/20 tablet,extended release 24 hr ibuprofen 600 mg tablet 600 mg PO PRN tab 06/09/20 06/09/20 Previous Rx's Medication Instructions Recorded gabapentin enacarbil 600 mg 600 mg PO QPM 90 Days #90 tab 06/09/20 tablet,extended release ropinirole 1 mg tablet 1 mg PO QHS 90 Days #90 tab 06/09/20 Allergies Allergy/AdvReac Type Severity Reaction Status Date / Time No Known Allergies Allergy Verified 06/09/20 16:15 [facility] History - Hepatitis A Screen Attestation statement:: This patient has been screened for Hepatitis A risk factors. I have reviewed the patient's past medical history: Yes Medical History: Reports:: BPH Denies:: Cancer, Diabetes Mellitus Type 1, Diabetes Mellitus Type 2, Internal Pacemaker, MRSA, Seizures Other Medical History: Reports: Arthritis, Other. Denies: Blood Transfusion Reaction Comment: RLS, AMISH- untreated Laterality Cases: Right: Arthroscopy Knee, Bilateral: Tonsillectomy Other Surgeries: Yes: No Previous Surgery, Appendectomy, Colonoscopy, Other. No: Pacemaker Amputation: No Fractures: No Comment: rt knee sx - Social History Smoking Status: Former smoker Tobacco Type: cigarettes #Yrs smoked (if former smoker): 20 Alcohol Intake: never Alcohol Intake Frequency:: other Substance Use Type: former substance user, marijuana, crack/cocaine, methamphetamine Occupational Status: employed Housing: house Household Members: spouse Family Hx:: Unable to obtain Comment: liver disease ROS Obtained: Yes All systems reviewed & no additional complaints - Constitutional Constitutional: Reports chills, Reports fever(s), Reports poor appetite, Reports malaise - Eyes Eyes: Denies eye discharge - ENT Ears, Nose, Mouth, and Throat: Denies dizziness, Denies otalgia, Denies sore throat - Cardiovascular Cardiovascular: Denies chest pain - Respiratory Respiratory: Denies chest congesti
[2020-06-17 09:27] VITALS: BP 130/66; PULSE 93; RESP 18; TEMP 37.7; O2SAT 96; BMI 41.3
[2020-06-17 09:32] LABS: Adenovirus,PCR Not Detected (NotDetected); Bordetella Pertussis Not Detected (NotDetected); Chlamydophila Pneumoniae, PCR Not Detected (NotDetected); Coronavirus 19, PCR Not Detected (NotDetected); Coronavirus 229E Not Detected (NotDetected); Coronavirus NL63 Not Detected (NotDetected); Coronavirus OC43 Not Detected (NotDetected); Coronovirus HKU1,PCR Not Detected (NotDetected); Human Metapneumovirus Not Detected (NotDetected); Influenza A, PCR Not Detected (NotDetected); Influenza AH1, 2009 Not Detected (NotDetected); Influenza AH1, PCR Not Detected (NotDetected); Influenza AH3,PCR Not Detected (NotDetected); Influenza B, PCR Not Detected (NotDetected); Mycoplasma Pneumoniae, PCR Not Detected (NotDetected); Parainfluenza 1, PCR Not Detected (NotDetected); Parainfluenza 2, PCR Not Detected (NotDetected); Parainfluenza 3, PCR Not Detected (NotDetected); Parainfluenza 4, PCR Not Detected (NotDetected); Respiratory Syncytial Virus Not Detected (NotDetected); Rhinovirus/Enterovirus Not Detected (NotDetected)
[2020-06-17 09:44] VITALS: BP 130/66; PULSE 93; RESP 18; TEMP 37.7; O2SAT 96
== END 2020-06-17 09:45 | disposition home or self-care (01) ==
PROVIDERS: Emergency Provider Nurse Practitioner Family; PCP Family Medicine
DX: Z20.822 Contact with and (suspected) exposure to COVID-19 (principal); R50.9 Fever, unspecified; M79.18 Myalgia, other site; Z87.891 Personal history of nicotine dependence
CPT/HCPCS: 87581; 87633; 87798; 99202; G0463

== ENCOUNTER → 2020-06-20 09:58 | Day surgery (SDC) | payer OTHER, SELFPAY ==
[2020-06-20 11:42] VITALS: BP 121/77; PULSE 78; RESP 18; TEMP 36.1; O2SAT 98; BMI 41.3
[2020-06-20 12:19] VITALS: BP 141/77; PULSE 84; RESP 20; O2SAT 98
[2020-06-20 12:21] VITALS: BP 141/79; PULSE 89; RESP 18; O2SAT 98
--- NOTE | 2020-06-20 12:26 | HMH.PMPROC ---
- Procedure Date: 06/20/20 Time: 12:26 Anesthesiologist:: Felipe Amaral MD Complications:: None Pre-procedure Diagnosis:: Degenerative disc disease of lumbar spine with lumbar radiculopathy symptoms Post-procedure Diagnosis:: Same Indications for Procedure:: This patient is a pleasant 54-year-old white male who we are treating for low back pain with lumbar radiculopathy symptoms. He has done very well with his previous epidural steroid injections however he still has some residual pain in his left leg and left heel. We will do repeat lumbar epidural steroid injection under fluoroscopy today to help with his residual pain symptoms. Procedure Details:: Lumbar epidural steroid injection under fluoroscopy Informed consent was obtained and the risk and benefits of the procedure was explained to the patient. The patient was taken to the procedure room. The patient was placed prone on the procedure table. The patient was prepped and draped in sterile fashion. C-arm fluoroscopy was used to view the lumbar spine. Skin and subcutaneous tissues were anesthetized using lidocaine. I placed an 18-gauge epidural needle and advanced into the L4-L5 interspace using fluoroscopic guidance and [id number] to air. After confirmation of needle placement in the epidural space with dye I injected 2 mL of lidocaine 1.5% with Depo-Medrol 80 mg. Patient tolerated the procedure well with no complications. Plan and Disposition:: We will follow-up with him in 2 weeks. Will reevaluate his symptoms at that time. If he still has some symptoms down his left leg he may be a candidate for spinal cord stimulation to help with long-term relief of his pain symptoms.
[2020-06-20 12:35] VITALS: BP 123/79; PULSE 72; RESP 18; O2SAT 98
== END ==
PROVIDERS: PCP Family Medicine; Visit Provider Anesthesiology
DX: M51.16 Intervertebral disc disorders with radiculopathy, lumbar region (principal); N40.0 Benign prostatic hyperplasia without lower urinary tract symptoms; M19.90 Unspecified osteoarthritis, unspecified site; Z79.899 Other long term (current) drug therapy
CPT/HCPCS: 62323; J1040; Q9966

== ENCOUNTER → 2020-07-10 15:27 | Outpatient (POV) | payer OTHER, SELFPAY ==
[2020-07-10 16:00] VITALS: BP 135/85; PULSE 74; RESP 18; O2SAT 98; BMI 39.6
--- NOTE | 2020-07-14 08:41 | P.CONS_ITS ---
[facility] Pain Management SOAP Note Subjective:: Patient is a very pleasant 54-year-old white male who we are treating for low back pain with lumbar radiculopathy symptoms. Patient is done extremely well with his lumbar epidural steroid injections. He rates his pain today 4 out of 10. Patient and I discussed options moving forward he would like a neurosurgical consultation at this time. I do believe that would help determine proper plan of care. We will move forward with this. ROS General: no recent weight change, no fever, no sleep disturbances Respiratory: no cough, no shortness of air, no recurring pulmonary infections Cardiovascular/Peripheral Vascular: No chest pain, No palpitations, no edema, no shortness of breath. Gastrointestinal: no new onset incontinence, normal bowel movements reported Genitourinary: no new onset incontinence Musculoskeletal: Back pain, leg pain Psychiatric: normal mood/ affect Neurological: [denies new onset weakness in extremities], [denies new onset balance issues] Objective:: Physical Exam General: Alert and oriented x3, no acute distress, pleasant and cooperative, [on room air] Lungs: Resps E/U, Symmetrical chest expansion, Eyes: PERRL Musculoskeletal: Flexion and extension of lumbar spine somewhat guarded secondary to pain, deep tendon reflexes normal, strength in upper and lower extremities [5/5], slightly antalgic gait noted 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 We will follow up with him afterwards reassess his symptoms at that time he has been instructed to call the office if he has any issues prior to his next appointment. Dr. Amaral has reviewed this note and agrees with this plan of care. This note was dictated using voice recognition software and may contain errors or omissions [facility] History I have reviewed the patient's past medical history: Yes Medical History: Reports:: BPH Denies:: Cancer, Diabetes Mellitus Type 1, Diabetes Mellitus Type 2, Internal Pacemaker, MRSA, Seizures *Have you ever received a pneumonia vaccine?: Yes *Have you received a flu vaccine this season?: Yes Other Medical History: Reports: Arthritis, Other. Denies: Blood Transfusion Reaction Laterality Cases: Right: Arthroscopy Knee, Bilateral: Tonsillectomy Other Surgeries: Yes: No Previous Surgery, Appendectomy, Colonoscopy, Other. No: Pacemaker Amputation: No Fractures: No - *Social History Smoking Status: Former smoker Tobacco Type: cigarettes #Yrs smoked (if former smoker): 20 Alcohol Intake: never Alcohol Intake Frequency:: other Substance Use Type: former substance user, marijuana, crack/cocaine, methamphetamine *Occupational Status:: other Housing: house Household Members: spouse *Travel in the last 8 weeks: None Family Hx:: Unable to obtain
== END ==
PROVIDERS: PCP Family Medicine; Visit Provider Clinical Nurse Specialist Family Health
DX: M51.16 Intervertebral disc disorders with radiculopathy, lumbar region (principal)
CPT/HCPCS: 99212; G0463

== ENCOUNTER → 2020-09-19 12:46 | Outpatient (CLI) | payer OTHER, SELFPAY ==
--- NOTE | 2020-09-19 12:46 | US_ITS ---
PROCEDURE: US GALLBLADDER CLINICAL INDICATION: RUQ pain COMPARISON: No exams were available for comparison FINDINGS: Pancreas: The visualized pancreas is unremarkable. The tail is partially obscured Liver: Homogeneous echotexture of the visualized liver is noted. No focal liver lesions.. There is appropriate direction of blood flow within a non dilated portal vein. Right kidney: Unremarkable appearing. No hydronephrosis. Gallbladder: No stones are evident. Distended gallbladder is noted. Focal hyperechogenicity in the non dependent portion of the gallbladder is noted, raises the concern for polyp. There is no gallbladder wall thickening. Common duct is normal in diameter. IMPRESSION: Possible polyp in the gallbladder. Otherwise unremarkable study. Dictated by: Sylvia Hess 09/19/2020 14:36 Sylvia Hess in OV 09/19/2020 14:36
== END ==
PROVIDERS: PCP Emergency Medicine; Visit Provider Emergency Medicine
DX: R10.11 Right upper quadrant pain (principal)
CPT/HCPCS: 76705

== ENCOUNTER → 2020-09-19 13:36 | Outpatient (CLI) | payer OTHER, SELFPAY ==
[2020-09-19 15:03] LABS: Anion Gap 12.3 mEq/L (5-15); Blood Urea Nitrogen 16 mg/dl (9-20); Carbon Dioxide 27 mmol/L (22.0-30.0); Chloride 107 mmol/L (98-107); Cholesterol 203 mg/dl (140-200); Estimated Glomerular Filt Rate 88 ml/min (>60); GFR (African American) 106 ML/MIN (>60); Glucose 87 mg/dl (74-100); HDL Cholesterol 29 mg/dl (40-60); Potassium 4.3 mmoL/L (3.5-5.1); Sodium 142 mmol/L (136-145); Triglycerides 111 mg/dl (30-150); VLDL Cholesterol 22 mg/dL (0-40)
[2020-09-19 15:14] LABS: Direct LDL Cholesterol 141.94 mg/dL (100-129)
== END ==
PROVIDERS: Visit Provider Emergency Medicine
DX: E66.01 Morbid (severe) obesity due to excess calories (principal); Z68.41 Body mass index [BMI] 40.0-44.9, adult
CPT/HCPCS: 36415; 80048; 80061

== ENCOUNTER 2020-09-25 12:47 | Emergency (ER) | payer OTHER, SELFPAY ==
[2020-09-25 12:48] VITALS: BP 131/81; PULSE 75; RESP 20; TEMP 36.9; O2SAT 99; BMI 38.0
--- NOTE | 2020-09-25 13:02 | HMH.EDGENADL ---
ED Disposition Clinical Impression: Right upper quadrant pain Disposition: Home, Self-Care Condition on Discharge: Good Referrals: Edgardo Newell MD [Primary Care Provider] - 3 days Time of Disposition: 14:48 - Critical Care Critical Care Time: No Attestation: On , the high probability of a clinically significant, sudden or life threatening deterioration of the following system(s) required my full and direct attention, intervention and personal management. The time I documented below is in addition to time spent performing reported procedures but includes the following listed in this critical care notation. Medical Decision Making - Medical Records Medical records reviewed: Yes: I reviewed the patient's medical records. - Camilo Inquiry Pt receiving controlled substance: No Vital Signs: 09/25/20 12:48 Temperature 98.4 F Temperature Source Oral Pulse Rate [Left] 75 Respiratory Rate 20 Blood Pressure [Right Arm] 131/81 Blood Pressure Mean [Right Arm] 97 Blood Pressure Position [Right Arm] Sitting 02 Sat by Pulse Oximetry 99 Oxygen Delivery Method Room Air - Lab Data Lab results reviewed: Yes: I reviewed the patient's lab results. Lab Results 09/25/20 13:30: WBC 9.6, RBC 4.70, Hgb 14.0 L, Hct 42.1, MCV 89.5, MCH 29.7, MCHC 33.2, RDW 13.1, Plt Count 157, MPV 9.4, Neut % (Auto) 70.8, Lymph % (Auto) 20.7, [place] % (Auto) 5.1, Eos % (Auto) 2.7, Baso % (Auto) 0.8, Neut # (Auto) 6.8, Lymph # (Auto) 2.0, [place] # (Auto) 0.5, Eos # (Auto) 0.3, Baso # (Auto) 0.1 09/25/20 13:30: Sodium 142, Potassium 3.9, Chloride 109 H, Carbon Dioxide 24, Anion Gap 12.9, BUN 18, Creatinine 0.80, Estimated Creat Clear 187, Estimated GFR 100, Est GFR ( Amer) 121, Glucose 89, Calcium 8.9, Total Bilirubin 0.4, AST 37, ALT 31, Alkaline Phosphatase 86, Total Protein 7.2, Albumin 4.4, Globulin 2.8, Albumin/Globulin Ratio 1.6, Lipase 115 Result diagrams: 09/25/20 13:30 09/25/20 13:30 Orders (Tests/Meds): ORDERS Category Date Time Status US RUQ [US abdomen limited] Stat Exams 09/25/20 13:43 Taken Medical Decision Narrative: 54yo M evaluated for right upper quadrant pain. Patient with known gallbladder disease. Other differentials to include: Constipation, ACS/IL, pneumonia, PE, small bowel obstruction, ischemic colitis. Patient is in no acute distress and symptoms are improving without further intervention. Routine blood work for abdominal pain is initiated. We will repeat ultrasound to ensure no dilation or wall thickening. Labs are unremarkable. Ultrasound is unremarkable except for known polyp disease. Patient is discharged home. Discussed low-fat diet, avoidance of red meat, greasy foods. General Adult HPI - General Stated complaint: abd pain Time Seen by Provider: 09/25/20 13:02 Mode of Arrival: Ambulatory Source of Information: Patient - History of Present Illness HPI narrative: 54yo M evaluated for right upper quadrant pain. Patient has a longstanding history of gallbladder dysfunction. Has undergone HIDA scan in the past with reasonable gallbladder function. Was recently found to have a gallbladder polyp. Patient states was feeling well earlier and then had a sudden, sharp right upper quadrant pain. Patient reports having normal bowel movement. Is tolerating p.o. liquids. The patient reports continued pain therefore decided to be evaluated emergency department. Now on evaluation, he states the pain is beginning to subside though still present. Denies any fever. - Related Data Home Medications Medication Instructions Recorded Confirmed tamsulosin 0.4 mg capsule 0.4 mg PO NEEDED PRN 90 Days 05/29/18 09/23/20 cap oxybutynin chloride 5 mg 5 mg PO DAILY tab 06/04/19 09/23/20 tablet,extended release 24 hr Chlordiazepoxide/Clidinium Br 1 each PO DIRECTED 06/20/20 09/23/20 [Chlordiazepoxide-Clidinium Cap] sildenafil 50 mg tablet 50 mg PO tab 09/23/20 09/23/20 Previous Rx's
--- NOTE | 2020-09-25 13:43 | US_ITS ---
PROCEDURE: US ABDOMEN LIMITED CLINICAL INDICATION: pain Right upper quadrant pain COMPARISON: US RUQ US RUQ-(ABD LTD)1ORGAN/QUAD/FU from 03/25/2014 FINDINGS: PANCREAS: Unremarkable. No obvious mass or abnormal fluid collection. No ductal dilatation LIVER: No focal liver lesions demonstrated. Homogeneous echogenicity. No intrahepatic biliary ductal dilatation evident. There is appropriate direction of blood flow within a non dilated portal vein RIGHT KIDNEY: Unremarkable. Normal size and echogenicity. No hydronephrosis GALLBLADDER: There is a small focus of increased echogenicity along the posterior wall the gallbladder at 4 mm without shadowing consistent with a small gallbladder polyp. No shadowing stones are evident. Common bile duct is normal at 3 mm. IMPRESSION: Small gallbladder polyp otherwise negative right upper quadrant ultrasound Dictated by: Anthony Tan MD 09/25/2020 15:12 Anthony Tan MD in [place] 09/25/2020 15:12
[2020-09-25 13:47] LABS: Basophils # 0.1 K/mm3 (0-0.2); Basophils % 0.8 % (0.1-2.0); Eosinophils # 0.3 K/mm3 (0.0-0.4); Eosinophils % 2.7 % (0.1-12.0); Hematocrit 42.1 % (42.0-52.0); Lymphocytes % 20.7 % (10-50); Mean Corpuscular HGB Conc 33.2 g/dL (31.8-35.4); Mean Corpuscular Hemoglobin 29.7 pg (27.0-31.2); Mean Corpuscular Volume 89.5 fl (80-94); Mean Platelet Volume 9.4 fl (7.4-10.4); Monocytes # 0.5 K/mm3 (0.1-1.0); Monocytes % 5.1 % (1.7-9.3); Neutrophils # 6.8 K/mm3 (1.8-7.8); Neutrophils % 70.8 % (37.0-80.0); Platelet Count 157 K/mm3 (142-424); Red Cell Distribution Width 13.1 % (11.5-17.5); White Blood Count 9.6 K/mm3 (4.8-10.8)
[2020-09-25 13:48] LABS: Chloride 109 mmol/L (98-107); Potassium 3.9 mmoL/L (3.5-5.1); Sodium 142 mmol/L (136-145)
[2020-09-25 13:51] LABS: Alanine Aminotransferase 31 U/L (12-78); Albumin Level 4.4 g/dl (3.5-5.0); Albumin/Globulin Ratio 1.6 (1.1-1.8); Alkaline Phosphatase 86 U/L (38-126); Anion Gap 12.9 mEq/L (5-15); Aspartate Amino Transferase 37 U/L (17-59); Bilirubin,Total 0.4 mg/dl (0.2-1.3); Blood Urea Nitrogen 18 mg/dl (9-20); Calcium 8.9 mg/dl (8.4-10.2); Carbon Dioxide 24 mmol/L (22.0-30.0); Creatinine Clearance Estimated 187 mL/min (50-200); Estimated Glomerular Filt Rate 100 ml/min (>60); GFR (African American) 121 ML/MIN (>60); Globulin 2.8 g/dL (1.3-3.2); Glucose 89 mg/dl (74-100); Lipase 115 U/L (23-300); Total Protein,Serum 7.2 g/dl (6.3-8.2)
[2020-09-25 15:04] VITALS: BP 123/81; PULSE 77; RESP 16; TEMP 36.4; O2SAT 100
== END 2020-09-25 15:05 | disposition home or self-care (01) ==
PROVIDERS: Emergency Provider Family Medicine; PCP Emergency Medicine
DX: R10.11 Right upper quadrant pain (principal); E66.9 Obesity, unspecified; Z68.38 Body mass index [BMI] 38.0-38.9, adult; Z87.891 Personal history of nicotine dependence
CPT/HCPCS: 76705; 80053; 83690; 85025; 99282

== ENCOUNTER → 2022-08-10 10:49 | Outpatient (CLI) | payer OTHER, SELFPAY ==
[2022-08-10 12:06] LABS: Basophils % 0.5 % (0.1-2.0); Eosinophils # 0.3 K/mm3 (0.0-0.4); Eosinophils % 4.2 % (0.1-12.0); Hematocrit 46.7 % (42.0-52.0); Hemoglobin 15.3 g/dL (14.1-18.0); Lymphocytes # 1.4 K/mm3 (0.7-4.5); Lymphocytes % 23.5 % (10-50); Mean Corpuscular HGB Conc 32.8 g/dL (31.8-35.4); Mean Corpuscular Hemoglobin 29.7 pg (27.0-31.2); Mean Corpuscular Volume 90.7 fl (80-94); Mean Platelet Volume 9.7 fl (7.4-10.4); Monocytes # 0.4 K/mm3 (0.1-1.0); Monocytes % 7.5 % (1.7-9.3); Neutrophils # 3.8 K/mm3 (1.8-7.8); Neutrophils % 64.3 % (37.0-80.0); Platelet Count 179 K/mm3 (142-424); Red Blood Count 5.15 M/mm3 (4.60-6.20); Red Cell Distribution Width 13.7 % (11.5-17.5); White Blood Count 5.9 K/mm3 (4.8-10.8)
[2022-08-10 12:39] LABS: Iron 85 ug/dL (49-181)
[2022-08-10 12:48] LABS: Total Iron Binding Capacity 354 ug/dL (261-462)
[2022-08-10 13:17] LABS: Ferritin 82.5 ng/ml (17.9-464)
== END ==
LOC: LAB 10:50
PROVIDERS: PCP Emergency Medicine; Visit Provider Nurse Practitioner Family
DX: E83.10 Disorder of iron metabolism, unspecified (principal)
CPT/HCPCS: 36415; 82728; 83540; 83550; 85025

== ENCOUNTER 2024-01-16 11:37 | Outpatient (CLI) | payer OTHER, SELFPAY ==
[2024-01-16 12:19] LABS: Basophils # 0.1 K/mm3 (0-0.2); Basophils % 0.8 % (0.1-2.0); Eosinophils # 0.6 K/mm3 (0.0-0.4); Eosinophils % 7.4 % (0.1-12.0); Hematocrit 43.1 % (42.0-52.0); Hemoglobin 15.2 g/dL (14.1-18.0); Lymphocytes # 1.9 K/mm3 (0.7-4.5); Lymphocytes % 25.1 % (10-50); Mean Corpuscular HGB Conc 35.2 g/dL (31.8-35.4); Mean Corpuscular Hemoglobin 31.5 pg (27.0-31.2); Mean Corpuscular Volume 89.4 fl (80-94); Mean Platelet Volume 8.8 fl (7.4-10.4); Monocytes # 0.5 K/mm3 (0.1-1.0); Monocytes % 6.3 % (1.7-9.3); Neutrophils # 4.5 K/mm3 (1.8-7.8); Neutrophils % 60.3 % (37.0-80.0); Platelet Count 184 K/mm3 (142-424); Red Blood Count 4.82 M/mm3 (4.60-6.20); Red Cell Distribution Width 13.7 % (11.5-17.5); White Blood Count 7.4 K/mm3 (4.8-10.8)
[2024-01-16 12:39] LABS: Albumin/Globulin Ratio 1.6 (1.1-1.8); Estimated Glomerular Filt Rate 115 ml/min (>60); GFR (African American) 140 ML/MIN (>60); Globulin 2.5 g/dL (1.3-3.2)
[2024-01-16 13:26] LABS: Alanine Aminotransferase 61 U/L (12-78); Albumin Level 3.9 g/dl (3.5-5.0); Alkaline Phosphatase 68 U/L (38-126); Anion Gap 11.4 mEq/L (5-15); Aspartate Amino Transferase 32 U/L (17-59); Bilirubin,Total 0.6 mg/dl (0.2-1.3); Blood Urea Nitrogen 10 mg/dl (9-20); Calcium 8.6 mg/dl (8.4-10.2); Carbon Dioxide 27 mmol/L (22.0-30.0); Chloride 105 mmol/L (98-107); Chol/HDL Ratio 6.1 (1-3.5); Cholesterol 158 mg/dl (140-200); Glucose 94 mg/dl (74-100); HDL Cholesterol 26 mg/dl (40-60); Potassium 4.4 mmoL/L (3.5-5.1); Sodium 139 mmol/L (136-145); Total Protein,Serum 6.4 g/dl (6.3-8.2); Triglycerides 147 mg/dl (30-150); VLDL Cholesterol 29 mg/dL (0-40)
[2024-01-16 13:37] LABS: Direct LDL Cholesterol 119.75 mg/dL (100-129)
[2024-01-16 13:59] LABS: Prostate Specific Ag Screen 1.2 ng/ml (0.0-4.0)
[2024-01-16 14:01] LABS: Hemoglobin A1C 5.7 % (4.0-6.0)
== END 2024-01-16 23:59 | disposition home or self-care (01) ==
LOC: LAB 11:42
PROVIDERS: PCP Family Medicine; Visit Provider Family Medicine
DX: Z00.00 Encounter for general adult medical examination without abnormal findings (principal); Z13.1 Encounter for screening for diabetes mellitus; Z68.42 Body mass index [BMI] 45.0-49.9, adult; Z12.5 Encounter for screening for malignant neoplasm of prostate
CPT/HCPCS: 36415; 80053; 80061; 83036; 85025; G0103

== ENCOUNTER 2024-02-19 00:31 | Emergency (ER) | payer OTHER, SELFPAY ==
[2024-02-19 00:32] VITALS: BP 125/76; PULSE 106; RESP 18; TEMP 37.1; O2SAT 93; BMI 47.5
--- NOTE | 2024-02-19 00:37 | ED_ITS ---
Discharge Plan Disposition Patient Disposition: Home, Self-Care Prescriptions Prescriptions: New oseltamivir 75 mg capsule 75 mg PO BID 5 Days Qty: 10 0RF ondansetron HCl 4 mg tablet 4 mg PO Q8H PRN (Reason: nausea and vomiting) 5 Days Qty: 30 0RF benzonatate 100 mg capsule 100 mg PO Q6H PRN (Reason: cough) Qty: 30 0RF No Action ropinirole 1 mg tablet 2 mg PO HS MDD 2 mg Qty: 60 6RF trazodone 50 mg tablet 50 mg PO HS MDD 50 mg Qty: 30 6RF Horizant 600 mg tablet extended release 600 mg PO HS Qty: 30 2RF Rx Instructions: administer daily at approximately 5 PM with food/evening meal gabapentin enacarbil 600 mg tablet extended release 600 mg PO QPM 30 Days Qty: 30 5RF Rx Instructions: Administer daily at approximately 5 PM with food/evening meal multivitamin [Daily Multi-Vitamin] Tablet 1 tab PO DAILY sildenafil [Viagra] 100 mg tablet 100 mg PO DAILY PRN (Reason: sexual activity) Qty: 10 12RF Rx Instructions: administer 30 minutes to 4 hours before activity prochlorperazine maleate [Compazine] 10 mg tablet 10 mg PO Q6H PRN (Reason: nausea and vomiting) Qty: 60 3RF dicyclomine 20 mg tablet 20 mg PO QID Qty: 90 5RF Wegovy 0.25 mg/0.5 mL pen injector 0.25 mg SQ WEEKLY Qty: 2 0RF Rx Instructions: administer weeks 1 through 4 of therapy phentermine [Adipex-P] 37.5 mg tablet 37.5 mg PO DAILY Qty: 30 0RF Rx Instructions: must administer 30 minutes before or 1-2 hours after breakfast Referrals Follow up/Referrals: Coy Briggs MD [Primary Care Provider] - See instructions Activity Restrictions/Add. Instructions Additional Instructions/Restrictions: Please take Tamiflu as prescribed for treatment of influenza. Please take Zofran as needed for nausea and vomiting. Please follow-up with your primary care provider. Please return to the emergency department if you develop any new or worsening symptoms or become concerned for your health. Clinical Impressions Clinical Impression: Influenza A Instructions Patient Instructions: DI for Influenza -- Adult Print Language Print Language: Russian Discharge ED Provider: [place],Misael General Adult HPI General Chief complaint: Upper Respiratory Infection Stated complaint: SOA Time Seen by Provider: 02/19/24 00:34 History of Present Illness HPI narrative: 58-year-old male with history of obesity presents for flulike symptoms. Patient started with a sore throat/scratchy throat approximately 12 hours prior to arrival. He developed cough and feels like he cannot catch his breath because of the cough. He has had a headache as well. He denies fever at home. He reports no significant medical problems, specifically denies any lung history, quit smoking 30 years ago. He reports that people in the family have been sick as well. Related Data Home Medications ?Medication ?Instructions ?Recorded ?Confirmed multivitamin (Daily Multi-Vitamin 1 tab PO DAILY 11/17/20 02/01/24 tablet) Previous Rx's ?Medication ?Instructions ?Recorded ropinirole 1 mg tablet 2 mg (2 x 1 mg) PO HS RLS #60 tabs 12/07/23 trazodone 50 mg tablet 50 mg PO HS insomnia #30 tabs 12/07/23 gabapentin enacarbil 600 mg 600 mg PO QPM RLS, neuropathic 12/08/23 tablet,extended release pain 30 days #30 tabs gabapentin enacarbil 600 mg 600 mg PO HS RLS #30 tabs 12/08/23 tablet,extended release (Horizant ER) sildenafil 100 mg tablet (Viagra) 100 mg PO DAILY PRN sexual 01/16/24 activity #10 tabs dicyclomine 20 mg tablet 20 mg PO QID #90 tabs 02/01/24 prochlorperazine maleate 10 mg 10 mg PO Q6H PRN nausea and 02/01/24 tablet (Compazine) vomiting #60 tabs semaglutide (weight loss) 0.25 0.25 mg (0.5 mL) SQ WEEKLY #2 mL 02/01/24 mg/0.5 mL subcutaneous pen injector (Wegovy) phentermine 37.5 mg tablet 37.5 mg PO DAILY #30 tabs 02/10/24 (Adipex-P) benzonatate 100 mg capsule 100 mg PO Q6H PRN cough #30 caps 02/19/24 ondansetron HCl 4 mg tablet 4 mg PO Q8H PRN nausea and 02/19/24 vomiting 5 days #30 tabs oseltamivir 75 mg capsule 75 mg PO BID 5 days #10 caps 02/19/24 Allergies Allergy/AdvReac Type Severity Reaction Status Date / Time No Known Allergies Allergy Verified 02/01/24 15:32 [facility] Disclaimer: The information contained in this section may have been updated after the patient was seen, as this information can be updated by other users. Medical History AMISH (obstructive sleep apnea) [place]: 17. Advised observation restriction of dressing, stenosis present and consider oral appliance for AMISH. He was also advised to establish care with a PCP and discuss weight loss under medical supervision. RLS (restless legs syndrome) Currently on Horizant, ropinirole, numerous vitamins and signs, symptoms suggestive of augmentation Surgical History History of arthroscopy of knee History of appendectomy History of tonsillectomy Family History Other Coronary artery disease Liver disease Social History Smoking Status: Former smoker tobacco type: cigarettes second hand exposure: No alcohol intake: former substance use type: denies use current occupational status: employed Travel in the last 8 weeks: None household members: spouse and family housing: house marital status: current occupational exposures/hazards: No caffeine: Yes Have you lived/traveled outside [place] in past 30 days?: No Contact w/someone who lives/traveled outside US past 30 days?: No Exposure to someone with infectious disease in past 14 days?: No Do you have a fever (greater than 100.4 F or 38 C)?: No Have you tested positive for COVID-19: No Exposed to someone with COVID-19 in past 14 days?: No Do you have a sore throat?: No Do you have a cough?: No Do you have any weakness?: No Do you have any diarrhea?: No Are you experiencing any unusual bleeding?: No Do you have any muscle aches/pain?: No Do you have any abdominal pain?: No Are you experiencing loss of taste or smell?: No Other Medical History Have you received the Flu Vaccine for this season: Yes Have you received the Pneumonia Vaccine: No ROS Obtained: Yes All systems reviewed & no additional complaints except as documented Physical Exam General General appearance: alert and in no apparent distress Head Head exam: atraumatic and normocephalic Eye Eye exam: Present normal appearance, PERRL and EOMI ENT ENT exam: Present normal external ear exam; Absent normal oropharynx (Minimally erythematous, no tonsillar enlargement or exudate) Neck Neck exam: Present normal inspection and full ROM Chest Chest inspection: Present normal inspection and symmetric chest wall rise; Absent tenderness Respiratory Respiratory exam: Present normal lung sounds bilaterally and other (Frequent dry cough noted); Absent respiratory distress Cardiovascular Cardiovascular exam: Present normal rhythm and tachycardia Abdominal Exam Abdominal exam: Present soft; Absent distention, tenderness or guarding Extremities Exam Extremities exam: Present normal inspection; Absent edema or joint swelling Back Exam Back exam: Present normal inspection; Absent tenderness Neurological Exam Neurological exam: Present alert and oriented X3; Absent motor sensory deficit Psychiatric Psychiatric exam: Present normal affect and normal mood Skin Skin exam: Present warm, dry and normal color Lymphatic Lymphatic Findings: no adenopathy Medical Decision Making Medical Records Medical records reviewed: Yes I reviewed the patient's medical records. Screening: Per USPSTF and CDC recommendations, given the prevalence of disease in our region, it is our hospital?s policy to screen for HIV and viral Hepatitis for all patients aged 18 and over and those with ongoing risk factors. Camilo Inquiry Pt receiving controlled substance: No Camilo was queried for this patient: No Vital Signs: 02/19/24 00:32 02/19/24 03:14 Temperature 98.7 F 98.7 F Temperature Source Oral Oral Pulse Rate 98 H Pulse Rate [Right] 106 H Respiratory Rate 18 20 Blood Pressure 125/76 Blood Pressure [Right Arm] 125/76 Blood Pressure Mean [Right Arm] 92 Blood Pressure Source Automatic Cuff Blood Pressure Source [Right Arm] Automatic Cuff Blood Pressure Position Sitting Blood Pressure Position [Right Arm] Sitting 02 Sat by Pulse Oximetry 93 L Oxygen Delivery Method Room Air Room Air Lab Data Lab results reviewed: Yes I reviewed the patient's lab results. Lab Results 02/19/24 01:21: SARS-CoV-2 (PCR) Not detected, Influenza Type A (PCR) Detected A , Influenza Type B (PCR) Not detected, RSV (PCR) Not detected, Rhinovirus (PCR) Not detected Orders (Tests/Meds): ED MEDICATIONS Discontinued Medications Generic Name Dose Route Start Last Admin Trade Name Freq PRN Reason Stop Dose Admin Benzonatate 100 mg 02/19/24 01:30 02/19/24 01:26 Benzonatate 100mg Capsule PO 03/20/24 01:29 100 mg ONCE GIACOMO Administration Oseltamivir Phosphate 75 mg 02/19/24 02:57 02/19/24 03:02 Oseltamivir 75mg Capsule PO 02/19/24 02:58 75 mg ONCE ONE Administration ORDERS Category Date Time Status CXR 2 view (NOT portable) [XR chest 2V] Stat Exams 02/19/24 00:49 Completed Mini Respiratory Panel Stat Lab 02/19/24 01:21 Completed ECG Data Tracing #1: I reviewed this ECG and interpreted as documented below: Sinus tachycardia with rate of 105, no concerning ST or T wave changes, no evidence of arrhythmia. ECG initial impression date: 02/19/24 ECG initial impression time: 00:40 Medical Decision Narrative: 58-year-old male with history of obesity presents for flulike symptoms including headache, sore throat, dry cough. History was obtained via interactive discussion with patient. On arrival, patient is [afebrile, hemodynamically stable, alert, oriented x4, GCS 15], moving all extremities spontaneously. Full physical exam performed and significant for clear lungs bilaterally, minimally erythematous oropharynx without exudate, no significant respiratory distress. Patient is mildly tachycardic at 105 and is satting low 90s on room air Differential includes but is not limited to flu, pharyngitis, viral syndrome, pneumonia, Patient was given Tessalon Perle for symptomatic management and correction of underlying abnormalities. Workup initiated including view chest x-ray, viral panel. On re-evaluation, patient [remains afebrile, HD stable.] Satting low 90s on room air. Laboratory workup independently interpreted by me and significant for positive for influenza A. Imaging independently interpreted by me and significant for clear lungs bilateral. See radiology read for full review of final results. Given patient history, exam and workup, patient's presentation most likely represents acute influenza A infection. No indication for admission at this time, however patient is at risk for respiratory decline given age and comorbidities. I will prescribe the patient Tamiflu and Zofran and gave him strict return precautions for worsening respiratory distress. Procedures Risk/Benefits of Procedure(s) Were Explained: Yes Critical Care Critical Care Time Critical Care Time: No
--- NOTE | 2024-02-19 00:39 | ECG_ITS ---
APPROVED REPORT Exam: Resting ECG HR:105 bpm ECG Measurements Heart Rate 105 AXES MO 147 P 20 QRSd 98 QRS 21 QT 329 T 24 QTc 390 Conclusion SINUS TACHYCARDIA ABNORMAL RHYTHM ECG UNCONFIRMED REPORT Electronically signed by : TIAGO YAP, 02/19/2024 06:55:36
--- NOTE | 2024-02-19 00:49 | XR_ITS ---
PROCEDURE INFORMATION: Exam: XR Chest Exam date and time: 02/19/2024 12:49 AM Age: 58 years old Clinical indication: Cough; Additional info: Flu like symptoms TECHNIQUE: Imaging protocol: Radiologic exam of the chest. Views: 2 views. COMPARISON: CT CHEST WO CON 04/27/2019 11:15 AM FINDINGS: Lungs: Unremarkable. No consolidation. Pleural spaces: Unremarkable. No pleural effusion. No pneumothorax. Heart/Mediastinum: Unremarkable. No cardiomegaly. Bones/joints: Unremarkable. IMPRESSION: No acute findings.
[2024-02-19] MEDS: BENZONATATE 100MG CAPSULE 100 MG PO (01:26)
[2024-02-19 01:27] LABS: Coronavirus 19, PCR Not Detected (NotDetected); Human Rhinovirus Not Detected (NotDetected); Influenza B, PCR Not Detected (NotDetected); Respiratory Syncytial Virus Not Detected (NotDetected)
[2024-02-19 02:47] LABS: Influenza A, PCR Detected (NotDetected)
[2024-02-19] MEDS: OSELTAMIVIR 75MG CAPSULE 75 MG PO (03:02)
[2024-02-19 03:14] VITALS: BP 125/76; PULSE 98; RESP 20; TEMP 37.1; O2SAT 93
== END 2024-02-19 03:16 | disposition home or self-care (01) ==
PROVIDERS: Emergency Provider Emergency Medicine; PCP Family Medicine
DX: J10.1 Influenza due to other identified influenza virus with other respiratory manifestations (principal); R05.9 Cough, unspecified; R06.02 Shortness of breath; R51.9 Headache, unspecified
CPT/HCPCS: 71046; 87631; 93005; 99284